=== PATIENT | female | born 1985 | race Caucasian/White ===

== ENCOUNTER 2021-08-09 22:57 | Emergency (ER) | payer SELFPAY ==
[~2021-08-09] VITALS: Ht 147.3 cm; Wt 90.0 kg
[2021-08-09] MEDS ORDERED: IBUPROFEN 600MG TABLET PO ONE (23:45)
[2021-08-09 23:56] VITALS: BP 127/56
== END 2021-08-10 00:30 | disposition home or self-care (01) ==
LOC: ER 22:57
DX: R50.9 Fever, unspecified (principal); M79.10 Myalgia, unspecified site; Z20.822 Contact with and (suspected) exposure to COVID-19; Z98.890 Other specified postprocedural states
CPT/HCPCS: 87426; 99283